=== PATIENT | male | born 1970 | race Two or more races ===

== ENCOUNTER → 2021-11-12 | Emergency (ER) | payer BC, OTHER ==
[~2021-11-12] VITALS: Ht 175.3 cm; Wt 104.3 kg
[2021-11-13 04:37] VITALS: BP 187/109
== END | disposition left against medical advice (07) ==
LOC: EDBD 20:16 → ER 20:16
DX: M54.59 Other low back pain (principal); Z53.21 Procedure and treatment not carried out due to patient leaving prior to being seen by health care provider